=== PATIENT | male | born 1985 | race Caucasian/White ===

== ENCOUNTER 2017-11-02 14:57 | Emergency (ER) | payer BC, OTHER ==
[~2017-11-02] VITALS: Ht 182.9 cm; Wt 74.9 kg
[~2017-11-02 14:57] MED LIST: NO HOME MEDS
[2017-11-02] MEDS ORDERED: LIDOcaine 1.5% w/epinephrine 1:200,000 5ml ampul IJ ONE (15:10)
[2017-11-02] MEDS ORDERED: CEPH-571 PO (15:58)
[2017-11-02 16:05] VITALS: BP 121/66
== END 2017-11-02 16:09 | disposition home or self-care (01) ==
LOC: ER 14:58
DX: S91.312A Laceration without foreign body, left foot, initial encounter (principal); Z88.5 Allergy status to narcotic agent; Z79.899 Other long term (current) drug therapy; W31.89XA Contact with other specified machinery, initial encounter; Y93.89 Activity, other specified; Y92.89 Other specified places as the place of occurrence of the external cause; Y99.8 Other external cause status
CPT/HCPCS: 12002; 73630; 99284; A6223; A6449; J3490